=== PATIENT | female | born 1935 | race Hispanic/Latino ===

== ENCOUNTER 2016-12-16 19:59 | Observation (INO) | payer MEDICARE ==
[2016-12-16 20:13] VITALS: BMI 22.8
[2016-12-16] MEDS ORDERED: Glucagon Recombinant 1 mg Inj IV STA (20:28)
[2016-12-16 20:59] LABS: BASO # 0.03 K/mm3 (0.0-2.0); BASO % 0.4 % (0.0-3.0); EOS % 0.4 % (1.5-5.0); GRAN # 6.5 (1.4-6.5); GRAN % 75.7 % (50.0-68.0); HEMATOCRIT 41.3 % (36.0-48.0); LYMPH # 1.5 (1.2-3.4); LYMPH % 17.9 % (22.0-35.0); MEAN CELL VOLUME 87.7 fl (80.0-105.0); MEAN CORPUSCULAR HEMOGLOBIN 29.7 pg (25.0-35.0); MEAN CORPUSCULAR HGB CONC 33.9 g/dl (31.0-37.0); MEAN PLATELET VOLUME 10.4 fl (7.0-11.0); MONO # 0.5 (0.1-0.6); MONO % 5.6 % (1.0-6.0); RED CELL DISTRIBUTION WIDTH 12.8 % (11.5-14.5); WHITE BLOOD COUNT 8.6 10^3/ul (4.5-11.0)
[2016-12-16 21:10] LABS: INR 1.09 (0.93-1.08); PARTIAL THROMBOPLASTIN TIME 32.7 Seconds (25.1-36.5)
[2016-12-16 21:12] LABS: ALB/GLOB RATIO 1.5 (1.1-1.8); ALKALINE PHOSPHATASE 80 U/L (38-126); ALT/SGPT 28 U/L (7-56); AST/SGOT 32 U/L (14-36); BILIRUBIN,TOTAL 0.8 mg/dL (0.2-1.3); BLOOD UREA NITROGEN 21 mg/dL (7-21); CALCIUM 9.8 mg/dL (8.4-10.5); CARBON DIOXIDE 28 mmol/L (21-33); CHLORIDE 104 mmol/L (98-107); GFR AFRICAN-AMERICAN > 60; GLUCOSE,RANDOM 99 mg/dL (70-110); POTASSIUM 4.5 mmol/L (3.6-5.0); SODIUM 142 mmol/L (132-148); TOTAL PROTEIN 7.7 g/dL (5.8-8.3)
--- NOTE | 2016-12-16 21:32 | ED PDOC ---
Arrival/HPI - General Chief Complaint: Foreign Body Time Seen by Provider: 12/16/16 20:22 Historian: Patient - History of Present Illness Narrative History of Present Illness (Text): 12/16/16 21:28 Ju Meyer is an 81 year old female who presents to the emergency department complaining of a piece of "hamsteak" stuck in her esophagus for a few hours. Patient denies any fever, chills, chest pain, shortness of breath, nausea, vomiting, diarrhea, urinary symptoms, back pain, neck pain, headache, dizziness, or any other complaints. Time/Duration: 1-3 hours Symptom Onset: Sudden Symptom Course: Improving Activities at Onset: Light Context: Home Past Medical History - Provider Review Nursing Documentation Reviewed: Yes - Past Medical History Past Medical History: No Previous - Cardiac Hx Hypertension: Yes - Pulmonary Hx Respiratory Disorders: No - Neurological Hx Neurological Disorder: No - HEENT Hx HEENT Disorder: No - Endocrine/Metabolic Hx Endocrine Disorders: No - Hematological/Oncological Hx Blood Transfusions: No Hx Blood Transfusion Reaction: No - Integumentary Hx Dermatological Disorder: No - Musculoskeletal/Rheumatological Hx Musculoskeletal Disorders: No - Gastrointestinal Hx Gastrointestinal Disorders: No - Genitourinary/Gynecological Hx Genitourinary Disorders: No - Psychiatric Hx Depression: No Hx Emotional Abuse: No Hx Physical Abuse: No Hx Substance Use: No - Past Surgical History Past Surgical History: No Previous - Surgical History Hx Cataract Extraction: Yes Other/Comment: had endoscopy about 4 years ago for same thing - Anesthesia Hx Anesthesia: Yes Hx Anesthesia Reactions: No Hx Malignant Hyperthermia: No - Suicidal Assessment Feels Threatened In Home Enviroment: No Family/Social History - Physician Review Nursing Documentation Reviewed: Yes Family/Social History: No Known Family HX Smoking Status: Light Smoker < 10 Cigarettes Daily Hx Alcohol Use: No Hx Substance Use: No Allergies/Home Meds Allergies/Adverse Reactions: Allergies No Known Allergies Allergy (Verified 12/16/16 20:14) Home Medications: Home Meds Medication Instructions Recorded Confirmed Metoprolol Tartrate [Lopressor] 50 mg PO BID 12/16/16 12/16/16 Unknown Bp Med 12/16/16 Review of Systems - Physician Review All systems were reviewed & negative as marked: Yes - Review of Systems Constitutional: absent: Fevers, Night Sweats Eyes: absent: Vision Changes ENT: Other (Foreign Body object stuck in esophagus). absent: Hearing Changes Cardiovascular: absent: Chest Pain Gastrointestinal: absent: Abdominal Pain Genitourinary Female: absent: Dysuria, Frequency Musculoskeletal: absent: Arthralgias, Back Pain Skin: absent: Rash, Pruritis Neurological: absent: Headache, Dizziness Endocrine: absent: Diaphoresis, Polyuria Hemo/Lymphatic: absent: Adenopathy Psychiatric: absent: Depression Physical Exam Vital Signs Reviewed: Yes Vital Signs Temp Pulse Resp BP Pulse Ox 12/17/16 13:50 72 12/17/16 11:06 76 139/64 12/17/16 11:05 76 139/64 12/17/16 09:07 97.6 F 76 20 139/64 96 12/17/16 03:45 20 12/17/16 02:35 97.9 F 80 14 119/54 L 96 12/17/16 02:20 97.9 F 88 14 115/57 L 95 12/17/16 02:05 97.9 F 83 16 99/65 L 96 12/16/16 23:31 98 F 78 16 148/72 96 12/16/16 23:05 76 16 150/73 95 12/16/16 21:07 75 18 162/73 H 95 12/16/16 20:13 97.8 F 77 16 187/87 H 96 Temperature: Afebrile Blood Pressure: Hypertensive Pulse: Regular Respiratory Rate: Normal Appearance: Positive for: Well-Appearing, Non-Toxic, Comfortable Pain Distress: None Mental Status: Positive for: Alert and Oriented X 3 Medical Decision Making ED Course and Treatment: 12/16/16 21:33 Impression: 81 year old female complaining of a piece of "hamsteak" stuck in her esophagus for a few hours. Differential Diagnosis included but are not limited to: Plan: -- EKG -- Chest X-ray -- Glucagen -- Reassess and disposition Prior Visits: Notes and results from previous visits were reviewed. Patient was last seen in the emergency department on 08/17/12 due to being unable to swallow liquids or solids for one day following a democrat. Patient was discharged home. Progress Notes: EKG: Ordered, reviewed, and independently interpreted the EKG. Rate: 82 BPM Rhythm: NSR Interpretation: Non-specific ST-T wave changes. case d/w dr donnelly will take pt to [facility] for endoscopy - Lab Interpretations Lab Results: 12/16/16 20:30 12/16/16 20:30 Lab Results 12/16/16 20:30: Sodium 142, Potassium 4.5, Chloride 104, Carbon Dioxide 28, Anion Gap 15, BUN 21, Creatinine 0.8, Est GFR ( Amer) > 60, Est GFR (Non- Af Amer) > 60, Random Glucose 99, Calcium 9.8, Total Bilirubin 0.8, AST 32, ALT 28, Alkaline Phosphatase 80, Total Protein 7.7, Albumin 4.6, Globulin 3.1, Albumin/Globulin Ratio 1.5 12/16/16 20:30: PT 11.9, INR 1.09 H, APTT 32.7 12/16/16 20:30: WBC 8.6, RBC 4.71, Hgb 14.0, Hct 41.3, MCV 87.7, MCH 29.7, MCHC 33.9, RDW 12.8, Plt Count 267, MPV 10.4, Gran % 75.7 H, Lymph % (Auto) 17.9 L, [place] % (Auto) 5.6, Eos % (Auto) 0.4 L, Baso % (Auto) 0.4, Gran # 6.50, Lymph # 1.5, [place] # 0.5, Eos # 0.0, Baso # 0.03 I have reviewed the lab results: Yes - RAD Interpretation Radiology Orders: 12/16/16 20:28 CHEST PORTABLE [RAD] Stat - Medication Orders Current Medication Orders: Discontinued Medications Albuterol/Ipratropium (Duoneb 3 Mg/0.5 Mg (3 Ml) Ud) 3 ml IH [id number] Last Admin: 12/17/16 13:50 Dose: 3 ml Glucagon (Glucagen Diagnostic Kit) 1 mg IV STAT STA Stop: 12/16/16 20:29 Last Admin: 12/16/16 20:46 Dose: 1 mg eMAR Start Stop Document 12/16/16 20:46 JOL (Rec: 12/16/16 20:47 JOL [id number]) Intravenous Solution Start Date 12/16/16 Start Time 20:47 End Date 12/16/16 End time 20:49 Total Infusion Time 2 Sodium Chloride (Sodium Chloride 0.9%) 1,000 mls @ 75 mls/hr IV .[id number] [facility] Stop: 12/17/16 04:16 Dextrose/Sodium Chloride (Dextrose 5%/0.45% Ns 1000 Ml) 1,000 mls @ 60 mls/hr IV .[id number] [facility] Last Admin: 12/17/16 03:59 Dose: 60 mls/hr eMAR Start Stop Document 12/17/16 03:59 JEREMIAH (Rec: 12/17/16 03:59 JEREMIAH [id number]) Intravenous Solution Start Date 12/17/16 Start Time 02:45 Losartan Potassium (Cozaar) 50 mg PO DAILY [facility] Last Admin: 12/17/16 11:05 Dose: 50 mg MAR Pulse and Blood Pressure Document 12/17/16 11:05 MV (Rec: 12/17/16 11:06 MV [id number]) Pulse Pulse Rate (60-90) 76 Blood Pressure Blood Pressure (100/60-150/90) 139/64 Metoprolol Tartrate (Lopressor) 50 mg PO BID [facility] Last Admin: 12/17/16 11:06 Dose: 50 mg MAR Pulse and Blood Pressure Document 12/17/16 11:06 MV (Rec: 12/17/16 11:07 MV [id number]) Pulse Pulse Rate (60-90) 76 Blood Pressure Blood Pressure (100/60-150/90) 139/64 Pantoprazole Sodium (Protonix Inj) 40 mg IVP Q12H [facility] Last Admin: 12/17/16 03:59 Dose: 40 mg IVP Administration Document 12/17/16 03:59 JEREMIAH (Rec: 12/17/16 03:59 JEREMIAH [id number]) Charges for Administration # of IVP Administrations 1 - Scribe Statement The provider has reviewed the documentation as recorded by the Giovanyibe Mack[place] Provider Scribe Attestation: All medical record entries made by the Scribe were at my direction and personally dictated by me. I have reviewed the chart and agree that the record accurately reflects my personal performance of the history, physical exam, medical decision making, and the department course for this patient. I have also personally directed, reviewed, and agree with the discharge instructions and disposition. Disposition/Present on Arrival - Present on Arrival Any Indicators Present on Arrival: No History of DVT/PE: No History of Uncontrolled Diabetes: No Urinary Catheter: No History of Decub. Ulcer: No History Surgical Site Infection Following: None - Disposition Have Diagnosis and Disposition been Completed?: Yes Diagnosis: Esophageal foreign body Disposition: HOSPITALIZED Disposition Time: 23:00 Condition: GOOD
[2016-12-16] MEDS ORDERED: Propofol 10 mg/ml Inj (20 ML) ONE (23:14)
[2016-12-16] MEDS ORDERED: Etomidate 20 mg/10ml Inj IV ONE (23:15)
[2016-12-17] MEDS ORDERED: Propofol 10 mg/ml Inj (20 ML) ONE (01:47)
[2016-12-17] MEDS ORDERED: Sodium Chloride 0.9% 1,000 ML IV SCH (02:15)
[2016-12-17 02:41] VITALS: O2SAT 96
[2016-12-17] MEDS ORDERED: Dextrose 5%/0.45% NS 1,000 ML IV SCH (02:45)
[2016-12-17 03:57] VITALS: RESP 20
--- NOTE | 2016-12-17 05:26 | CON ---
DATE: 12/16/2016 REASON FOR CONSULT: Foreign body food impaction in the esophagus. HISTORY OF PRESENT ILLNESS: This 81-year-old patient presented to the emergency room with difficulty swallowing, said she was eating ham steak and she felt she did not chew it well and it got struck. She is not able to swallow even water. The patient had similar episodes 3-4 years ago, she had endoscopy and removal. The patient has only 2 teeth there and she said she is always careful in eating and chewing the food. PAST MEDICAL HISTORY: Other past medical history includes hypertension. SOCIAL HISTORY: He is a smoker, less than 10 cigarettes per day. Denies any alcohol use. ALLERGIES: NO KNOWN DRUG ALLERGIES. FAMILY HISTORY: Noncontributory. REVIEW OF SYSTEMS: Positive as above. Difficultly in swallowing. Other systems negative. PHYSICAL EXAMINATION: GENERAL: The patient is lying in the bed, not in acute distress. VITAL SIGNS: Temperature is 97.9, blood pressure 115/57, pulse 88, respirations 14 and O2 saturation 95%. HEENT: Atraumatic and anicteric. On oral cavity examination, has a very lose tooth present. Poor dentition. NECK: Supple. HEART: S1 and S2 heard. LUNGS: Bilateral air entry present. ABDOMEN: Soft. There is no mass palpable. No tenderness. EXTREMITIES: No edema. No cyanosis. NEUROLOGIC: Alert, oriented, moves all extremities. LABORATORY DATA: Reviewed. Hemoglobin 14, hematocrit 41.3, WBC is 8.6 and platelets 267. Chemistry is essentially unremarkable. IMPRESSION: This 81-year-old patient presented with acute dysphagia while eating ham steak, most likely there is a foreign body food impaction in the esophagus, rule out stricture, rule out Schatzki ring. The patient would need emergent endoscopy. Risks, benefits and alternatives were explained to the patient and also patient's family who were at bedside. Informed consent was obtained. Her ASA risk category is III and AMP score 2. Vesna Roe MD
--- NOTE | 2016-12-17 08:20 | RAD ---
HISTORY: cp COMPARISON: 08/18/2014 FINDINGS: LUNGS: No active pulmonary disease. PLEURA: No significant pleural effusion identified, no pneumothorax apparent. CARDIOVASCULAR: Normal. OSSEOUS STRUCTURES: No significant abnormalities. VISUALIZED UPPER ABDOMEN: Normal. OTHER FINDINGS: None. IMPRESSION: No active disease.
--- NOTE | 2016-12-17 08:36 | CP.PCM.CON ---
History of Present Illness - History of Present Illness History of Present Illness: 81 year old female with history of hypertension and asthma presented to the Emergency Room last night with feeling of something stuck in her throat. She says she was unable to swallow any food or liquids. She was taken for EGD last night and a piece of ham steak was recovered. Review of Systems - Constitutional Constitutional: absent: Chills, Fever, Headache - Cardiovascular Cardiovascular: absent: Chest Pain, Diaphoresis, Dyspnea - Respiratory Respiratory: Cough. absent: Dyspnea - Gastrointestinal Gastrointestinal: absent: Abdominal Pain, Nausea, Vomiting - Musculoskeletal Musculoskeletal: absent: Abnormal Gait, Back Pain, Numbness Past Patient History - Past Social History Smoking Status: Light Smoker < 10 Cigarettes Daily - CARDIAC Hx Hypertension: Yes - PULMONARY Hx Pneumonia: Yes - NEUROLOGICAL Hx Neurological Disorder: No - HEENT Hx HEENT Problems: No - ENDOCRINE/METABOLIC Hx Endocrine Disorders: No - HEMATOLOGICAL/ONCOLOGICAL Hx Blood Transfusions: No Hx Blood Transfusion Reaction: No - INTEGUMENTARY Hx Dermatological Problems: No - MUSCULOSKELETAL/RHEUMATOLOGICAL Hx Falls: No - GASTROINTESTINAL Hx Gastrointestinal Disorders: No - GENITOURINARY/GYNECOLOGICAL Hx Genitourinary Disorders: No - PSYCHIATRIC Hx Depression: No Hx Emotional Abuse: No Hx Physical Abuse: No Hx Substance Use: No - SURGICAL HISTORY Hx Surgeries: Yes - ANESTHESIA Hx Anesthesia Reactions: No Hx Malignant Hyperthermia: No Meds Allergies/Adverse Reactions: Allergies Allergy/AdvReac Type Severity Reaction Status Date / Time No Known Allergies Allergy Verified 12/16/16 20:14 - Medications Medications: Current Medications Dextrose/Sodium Chloride (Dextrose 5%/0.45% Ns 1000 Ml) 1,000 mls @ 60 mls/hr IV .[id number] [facility] Last Admin: 12/17/16 03:59 Dose: 60 mls/hr Pantoprazole Sodium (Protonix Inj) 40 mg IVP Q12H [facility] Last Admin: 12/17/16 03:59 Dose: 40 mg Physical Exam - Constitutional Appears: No Acute Distress - Head Exam Head Exam: ATRAUMATIC, NORMOCEPHALIC - Respiratory Exam Respiratory Exam: Rhonchi, NORMAL BREATHING PATTERN - Cardiovascular Exam Cardiovascular Exam: REGULAR RHYTHM, +S1, +S2 - GI/Abdominal Exam GI & Abdominal Exam: Normal Bowel Sounds, Soft. absent: Tenderness - Extremities Exam Extremities exam: Positive for: normal inspection - Neurological Exam Neurological exam: Alert, CN II-XII Intact, Oriented x3 Results - Vital Signs Recent Vital Signs: Last Vital Signs Temp 97.9 F 12/17/16 02:35 Pulse 80 12/17/16 02:35 Resp 20 12/17/16 03:45 BP 119/54 L 12/17/16 02:35 Pulse Ox 96 12/17/16 02:35 - Labs Result Diagrams: 12/16/16 20:30 12/16/16 20:30 Assessment & Plan - Assessment and Plan (Free Text) Assessment: s/p EGD for foreign body in esophagus HTN Asthma Plan: Patient with rhonchi at bases. Will order CXR. continue Metoprolol and Losartan for hypertension continue Symbicort for asthma Patient on liquid diet as per GI. continue Protonix. advance diet as per GI.
[2016-12-17 09:07] VITALS: BP 139/64; TEMP 97.6
--- NOTE | 2016-12-17 10:12 | RAD ---
HISTORY: COMPARISON: No prior. TECHNIQUE: Chest PA and lateral FINDINGS: LINES AND TUBES: None. LUNG AND PLEURA: The lungs are hyperinflated and there is peribronchial thickening with chronic changes in both lungs. No focal consolidation. HEART AND MEDIASTINUM: The heart is not enlarged. The hilar and mediastinal contours are within normal limits. SKELETAL STRUCTURES: The bony structures are within normal limits for the patient's age. VISUALIZED UPPER ABDOMEN: Normal. OTHER FINDINGS: None. IMPRESSION: No active pulmonary disease.
[2016-12-17] MEDS ORDERED: Albuterol-Ipratrop 3 mg / 0.5 (3 ml) UD IH SCH (14:00)
[2016-12-17 14:08] VITALS: PULSE 72
--- NOTE | 2016-12-18 02:28 | PN ---
DATE: 12/17/2016 SUBJECTIVE: This patient underwent upper GI endoscopy with removal of the large piece of ham from the esophagus. The patient did have hiatus hernia and Schatzki ring. The patient's food infection caused the esophageal ulceration at 30 cm level. The patient also was found to have multiple gastric ulceration. A very loose tooth was present in the mouth and this was reviewed and discussed with the family members. The safest thing is to the very bad tooth. They all agreed and the tooth was easily pulled out by the anesthesiologist. No bleeding noticed. No complications. This was done postprocedure for safety reasons. The patient tolerated the procedure well. We will also request Dr. Patel for medical evaluation. Thank you very much for allowing us to participate in the care of the patient. Vesna Roe MD
--- NOTE | 2016-12-18 09:44 | CARD ---
APPROVED REPORT EKG Measurement Heart [id number] <Conclusion> Sinus rhythm with short SD Nonspecific ST and T wave abnormality Electrical artifact present
== END 2016-12-17 16:15 | disposition home or self-care (01) ==
LOC: ED 19:59 → 3RNO 12-17 02:24
PROVIDERS: ADMIT Internal Medicine Gastroenterology; ATTEND Internal Medicine Gastroenterology
DX: T18.128A Food in esophagus causing other injury, initial encounter (principal); K22.2 Esophageal obstruction; F17.210 Nicotine dependence, cigarettes, uncomplicated; I10 Essential (primary) hypertension; J45.909 Unspecified asthma, uncomplicated; K22.10 Ulcer of esophagus without bleeding; K25.9 Gastric ulcer, unspecified as acute or chronic, without hemorrhage or perforation; K44.9 Diaphragmatic hernia without obstruction or gangrene; Z79.899 Other long term (current) drug therapy; Z87.01 Personal history of pneumonia (recurrent); K08.89 Other specified disorders of teeth and supporting structures
CPT/HCPCS: 43247; 71010; 71020; 80053; 85025; 85610; 85730; 93005; 94640; 99283; C9113; G0378; J1610; J2001; J2405; J2704; J3010; J7030; J7042

== ENCOUNTER 2017-06-28 08:17 | Day surgery (SDC) | payer MEDICARE ==
[2017-06-26 10:23] VITALS: BMI 20.1
[2017-06-28 08:40] VITALS: O2SAT 99
[2017-06-28] MEDS ORDERED: Sodium Chloride 0.9% 1,000 ML IV SCH (10:30)
[2017-06-28] MEDS ORDERED: Propofol 10 mg/ml Inj (20 ML) ONE (10:47)
[2017-06-28 11:41] VITALS: RESP 16
[2017-06-28 12:39] VITALS: PULSE 69; TEMP 97.4
[2017-06-28 12:47] VITALS: BP 151/87
== END 2017-06-28 12:52 | disposition home or self-care (01) ==
LOC: ENDO 08:17
PROVIDERS: ATTEND Internal Medicine Gastroenterology
DX: K22.2 Esophageal obstruction (principal); K44.9 Diaphragmatic hernia without obstruction or gangrene; K29.70 Gastritis, unspecified, without bleeding; R13.10 Dysphagia, unspecified; I10 Essential (primary) hypertension; J44.9 Chronic obstructive pulmonary disease, unspecified; M81.0 Age-related osteoporosis without current pathological fracture
CPT/HCPCS: 43239; 88305; 88342; J2001; J2704; J7040 ×2